=== PATIENT | female | born 1955 | race Native Hawaiian/Other Pacific Islander ===

== ENCOUNTER 2017-09-06 06:07 | Day surgery (SDC) | payer OTHER ==
[2017-07-06 09:21] VITALS: BMI 31.3
[~2017-09-06 06:07] MED LIST: Ciprofloxacin 0.3% OPTH SOLN OD SCH; Cyclopentolate 1% Opth (2 ml) OD SCH; Flurbiprofen 0.03% Opht SOLN OD SCH; Lactated Ringer's 500 ML IV ONE; Phenylephrine 2.5% Opht Soln OD SCH; Tropicamide 1% Opht SOLUTION OD SCH
[2017-09-06] MEDS ORDERED: Lactated Ringer's 1,000 ML IV ONE (06:40)
[2017-09-06] MEDS ORDERED: Tetracaine 0.5% Ophth (OR ONLY) ONE (07:36)
[2017-09-06] MEDS ORDERED: Carbachol 0.01% IO ONE (07:36)
[2017-09-06] MEDS ORDERED: Povidone Iodine Ophthalmic 5% Soln ONE (07:36)
[2017-09-06] MEDS ORDERED: Tobramycin/Dexamethasone OPHT OINT ONE (07:36)
[2017-09-06] MEDS ORDERED: Chondroitin/Hyaluronate Opth Syringe KIT (0.55 ml-0.5 ml) IO ONE (07:36)
[2017-09-06] MEDS ORDERED: Hyaluronidase Human, Recombi 150 U/ML VIAL ONE (07:36)
[2017-09-06] MEDS ORDERED: Lidocaine 2% Inj (20ml) ONE (07:36)
[2017-09-06] MEDS ORDERED: Midazolam 2 MG/2 ML VIAL ONE (09:03)
[2017-09-06] MEDS ORDERED: Lactated Ringer's 500 ML IV ONE (09:34)
[2017-09-06 09:53] VITALS: RESP 15; TEMP 97.2; O2SAT 100
[2017-09-06 10:11] VITALS: PULSE 72
--- NOTE | 2017-09-06 11:02 | OP ---
PROCEDURE DATE: 09/06/2017 PREOPERATIVE DIAGNOSIS: Mature cataract, right eye. POSTOPERATIVE DIAGNOSIS: Mature cataract, right eye. OPERATIVE PROCEDURE: Phacoemulsification, right eye; insertion of posterior chamber lens implant. SURGEON: Aubrey Leigh MD. ANESTHESIA TYPE: Local intravenous sedation. PROCEDURE: The patient was brought into the operating room, placed in supine position, prepped and draped in the usual fashion for ophthalmic surgery. Lid speculum was inserted, lids and exposing globe. A side-port incision was made superiorly and inferiorly with a disposable sharp blade. Anterior chamber was filled with Viscoat. A near clear corneal incision was made temporally with a 2.75-mm keratome. Capsulorrhexis was then performed with Utrata forceps. Hydrodissection carried out with balanced salt solution. Nucleus was phacoemulsified. Remaining cortical fragments were removed with a split irrigation and aspiration system. The capsular sac was filled with Provisc. A posterior chamber lens was then injected into the capsular sac and rotated into horizontal position. Provisc was aspirated out of the anterior chamber. The pupil was constricted with Miochol. The wound was found to be watertight. Topical Betadine, Timoptic, and TobraDex ointment and pressure patch were applied. The patient tolerated the procedure well. Aubrey Leigh MD
[2017-09-06 12:06] VITALS: BP 113/68
== END 2017-09-06 10:34 | disposition home or self-care (01) ==
LOC: C.SDS 06:07
PROVIDERS: ATTEND Ophthalmology
DX: H26.9 Unspecified cataract (principal)
CPT/HCPCS: 66984; 82948; J2250; J3010; J3470; J7120